=== PATIENT | female | born 1995 | race Caucasian/White ===

== ENCOUNTER 2017-06-02 08:26 | Outpatient (CLI) | payer MEDICAID ==
--- NOTE | 2017-06-02 19:10 | XRAY Report ---
DATE OF SERVICE: 06/02/2017 SUPINE ABDOMEN: 06/02/2017 CLINICAL INDICATION: Chronic abdominal pain. Supine views of the abdomen demonstrate a normal bowel gas pattern. No small bowel dilatation is present. No abnormal calcifications are appreciated overlying either renal shadow. IMPRESSION: Normal abdomen. TD: 06/02/2017 20:08
--- NOTE | 2017-06-02 19:49 | Ultrasound Report ---
DATE OF SERVICE: 06/02/2017 COMPLETE ABDOMINAL ULTRASOUND: 06/02/2017 CLINICAL INDICATION: Chronic abdominal pain. TECHNIQUE: Real-time scanning was performed with communications representative static images obtained. Liver measures 12.3 cm. Hepatic echogenicity is normal. No intrahepatic biliary dilatation or focal parenchymal lesion is appreciated. The common bile duct measures 2 mm. The gallbladder is normal, as is the pancreas. The spleen measures 9.6 cm, and demonstrates normal echotexture. The kidneys are normal, with the right measuring 9.9 cm, and the left measuring 10.7 cm. The abdominal aorta is normal in caliber. The inferior vena cava is unremarkable. No free fluid is present. IMPRESSION: Normal abdominal ultrasound. TD: 06/02/2017 20:48
== END 2017-06-02 08:27 | disposition home or self-care (01) ==
LOC: DI 08:26
PROVIDERS: ATTEND Pediatrics
DX: R10.9 Unspecified abdominal pain (principal)
CPT/HCPCS: 74018; 76700

== ENCOUNTER 2017-09-24 16:17 | Emergency (ER) | payer MEDICAID ==
--- NOTE | 2017-09-24 17:22 | ED Physician Documentation ---
History of Present Illness - Stated complaint Stated Complaint: COUGH - Chief complaint Chief Complaint: General - History obtained from History obtained from: Patient, Family (mom) - History of Present Illness Timing: Other (Nonproductive cough for 3 weeks which is worsening, she also has chest pain with coughing deep breathing. No fevers but she feels tired. There is also runny nose and a sore throat. The sore throat was much worse at the outset 3 weeks ago, now very mild.) Review of Systems Constitutional: reports: Fatigue. denies: Fever, Chills Respiratory: reports: Cough. denies: Dyspnea GI: denies: Abdominal Pain : denies: Now [facility] PD PAST MEDICAL HISTORY - Past Surgical History Past Surgical History: No - Present Medications Home Medications: Ambulatory Orders Medication Instructions Recorded Confirmed Azithromycin [Zithromax] 250 mg PO DAILY #4 tablet 09/24/17 Beclomethasone 80 Mcg [Qvar 80] 1 puffs INH DAILY 09/24/17 09/24/17 Dexamethasone 4 mg PO BID #10 tablet 09/24/17 Fluticasone [Flonase] 1 appful IN BID 09/24/17 09/24/17 guaiFENesin/CODEINE [Robitussin AC] 5 - 10 ml PO Q6H PRN #120 ml 09/24/17 - Allergies Allergies/Adverse Reactions: Allergies Allergy/AdvReac Type Severity Reaction Status Date / Time montelukast [From Singulair] AdvReac Unknown Verified 09/24/17 16:28 prednisone AdvReac Unknown Verified 09/24/17 16:28 - Social History Does the pt smoke?: No Smoking Status: Never smoker Does the pt drink ETOH?: No Does the pt have substance abuse?: No - Immunizations Immunizations are current?: Yes PD ED PE NORMAL - Vitals Vital signs reviewed: Yes - General General: Alert and oriented X 3, No acute distress - HEENT HEENT: PERRL, Ears normal, Moist mucous membranes, Pharynx benign - Neck Neck: Supple, no meningeal sign, No bony TTP - Cardiac Cardiac: RRR, No murmur - Respiratory Respiratory: No respiratory distress, Clear bilaterally - Abdomen Abdomen: Non tender - Neuro Neuro: Alert and oriented X 3, Normal speech Results - Vitals Vitals: Vital Signs - 24 hr 09/24/17 16:24 Temperature 36.6 C Heart Rate 77 Respiratory 14 Rate Blood Pressure 135/81 H O2 Saturation 100 Oxygen O2 Source Room air - Rads (name of study) 2v chest Radiology: EMP read contemporaneously (Hazy left base opacity) Departure - Departure Disposition: 01 Home, Self Care Clinical Impression: Pneumonia Qualifiers: Pneumonia type: due to unspecified organism Laterality: left Lung location: lower lobe of lung Qualified Code(s): J18.1 - Lobar pneumonia, unspecified organism Condition: Good Record reviewed to determine appropriate education?: Yes Instructions: ED Pneumonia Adult Prescriptions: Azithromycin [Zithromax] 250 mg PO DAILY #4 tablet Dexamethasone 4 mg PO BID #10 tablet guaiFENesin/CODEINE [Robitussin AC] 5 - 10 ml PO Q6H PRN #120 ml PRN Reason: Cough Comments: Call your doctor to arrange a follow-up appointment, make the next available appointment. In the interim, return anytime if worse or if new symptoms develop. Your blood pressure was elevated today on check into the emergency department. This does not mean that you have hypertension, it is a common phenomenon to come to the emergency department and have elevated blood pressure. I recommend that you see your primary care physician within the week to have it rechecked when you are feeling better.
--- NOTE | 2017-09-24 17:37 | XRAY Preliminary Report ---
Exam: XR CHEST 2 VIEW X-RAY IMPRESSION: 1. Hazy density at the left lung base may be artifactual due to overlying breast parenchyma. No conco mitant abnormality on the lateral view. CT would be confirmatory. 2. No effusions or pneumothorax. [facility] SITE ID: [id number]
[2017-09-24] MEDS ORDERED: AZITHROMYCIN 250 MG TABLET PO STA (17:50)
--- NOTE | 2017-09-24 18:10 | XRAY Report ---
EXAM: CHEST RADIOGRAPHY EXAM DATE: 09/24/2017 05:29 PM. CLINICAL HISTORY: Cough, x 3 weeks. COMPARISON: 07/01/2014. TECHNIQUE: 2 views. FINDINGS: Lungs/Pleura: Subtle opacity at the lateral left lung base may represent overlying breast tissue give n the absence of significant abnormality on the lateral view. The right lung is clear. No pneumothora x or effusion. Mediastinum: Heart and mediastinal contours are unremarkable. Other: None. IMPRESSION: 1. Hazy density at the left lung base may be artifactual due to overlying breast parenchyma. No conco mitant abnormality on the lateral view. CT would be confirmatory. 2. No effusions or pneumothorax. [facility] Referring Provider Line: [phone] SITE ID: [id number]
[2017-09-24 18:15] VITALS: BP 127/78
== END 2017-09-24 18:13 | disposition home or self-care (01) ==
LOC: ED 16:17
DX: J18.1 Lobar pneumonia, unspecified organism (principal); R03.0 Elevated blood-pressure reading, without diagnosis of hypertension
CPT/HCPCS: 71046; 99283; A9270

== ENCOUNTER 2017-10-13 14:34 | Outpatient (CLI) | payer MEDICAID ==
--- NOTE | 2017-10-14 11:30 | XRAY Report ---
CHEST 2 VIEW X-RAY: 10/13/2017 HISTORY: Chronic cough. COMPARISON: 09/24/2017 FINDINGS: The lungs are clear. There is no pleural fluid or pneumothorax. The heart size is normal. Bony structures are unremarkable. IMPRESSION: NORMAL TWO VIEW CHEST X-RAY. TD: 10/13/2017 16:05
== END 2017-10-13 14:35 | disposition home or self-care (01) ==
LOC: DI 14:34
PROVIDERS: ATTEND Pediatrics
DX: R05 Cough (principal)
CPT/HCPCS: 71046

== ENCOUNTER 2018-06-04 17:23 | Emergency (ER) | payer MEDICAID ==
[2018-06-04] MEDS ORDERED: CYCLOBENZAPRINE 10 MG TABLET PO STA (17:40)
--- NOTE | 2018-06-04 17:42 | ED Physician Documentation ---
PD HPI PED ILLNESS - Stated complaint Stated Complaint: COUGH/STIFF NECK - Chief complaint Chief Complaint: Heent - History obtained from History obtained from: Patient, Family - History of Present Illness Timing - onset: Today (She has had a cough for a couple of days but today she has neck stiffness. She points to the right sternocleidomastoid as the site of stiffness it is much more painful with rotation than it is flexion. Mom had a concern about meningitis. There is no fever.) Review of Systems Constitutional: denies: Fever, Chills Nose: denies: Rhinorrhea / runny nose, Congestion Respiratory: reports: Dyspnea, Cough GI: denies: Abdominal Pain Neurologic: denies: Headache PD PAST MEDICAL HISTORY - Past Medical History Past Medical History: No Cardiovascular: None Respiratory: Asthma Neuro: None Endocrine/Autoimmune: None GI: None SUPERVISOR ASSEMBLING: None : None HEENT: None Psych: None Musculoskeletal: None Derm: None - Past Surgical History Past Surgical History: No - Present Medications Home Medications: Ambulatory Orders Medication Instructions Recorded Confirmed Azithromycin [Zithromax] 250 mg PO DAILY #4 tablet 09/24/17 Beclomethasone 80 Mcg [Qvar 80] 1 puffs INH DAILY 09/24/17 09/24/17 Dexamethasone 4 mg PO BID #10 tablet 09/24/17 Fluticasone [Flonase] 1 appful IN BID 09/24/17 09/24/17 guaiFENesin/CODEINE [Robitussin AC] 5 - 10 ml PO Q6H PRN #120 ml 09/24/17 Cyclobenzaprine [Flexeril] 10 mg PO TID PRN #20 tablet 06/04/18 - Allergies Allergies/Adverse Reactions: Allergies Allergy/AdvReac Type Severity Reaction Status Date / Time montelukast [From Singulair] AdvReac Unknown Verified 09/24/17 16:28 prednisone AdvReac Unknown Verified 09/24/17 16:28 - Social History Does the pt smoke?: No Smoking Status: Never smoker Does the pt drink ETOH?: No Does the pt have substance abuse?: No - Immunizations Immunizations are current?: Yes - POLST Patient has POLST: No PD ED PE NORMAL - Vitals Vital signs reviewed: Yes - General General: Alert and oriented X 3, No acute distress - HEENT HEENT: PERRL, EOMI, Pharynx benign - Neck Neck: Supple, no meningeal sign, No bony TTP, Other (She is tender over the right sternocleidomastoid and winces with leftward rotation but has no meningismus.) - Respiratory Respiratory: No respiratory distress, Clear bilaterally - Abdomen Abdomen: Non tender - Neuro Neuro: Alert and oriented X 3, Normal speech Results - Vitals Vitals: Vital Signs - 24 hr 06/04/18 17:29 Temperature 36.4 C L Heart Rate 92 Respiratory 16 Rate Blood Pressure 143/84 H O2 Saturation 99 Oxygen O2 Source Room air Departure - Departure Disposition: Home, Self Care Clinical Impression: Viral URI with cough, Neck muscle spasm Condition: Good Record reviewed to determine appropriate education?: Yes Instructions: ED Viral Syndrome Prescriptions: Cyclobenzaprine [Flexeril] 10 mg PO TID PRN #20 tablet PRN Reason: Spasms Comments: Call your doctor to arrange a follow-up appointment, make the next available appointment. In the interim, return anytime if worse or if new symptoms develop. Your blood pressure was elevated today on check into the emergency department. This does not mean that you have hypertension, it is a common phenomenon to come to the emergency department and have elevated blood pressure. I recommend that you see your primary care physician within the week to have it rechecked when you are feeling better.
[2018-06-04 17:48] VITALS: BP 130/72
== END 2018-06-04 17:49 | disposition home or self-care (01) ==
LOC: ED 17:23
DX: J06.9 Acute upper respiratory infection, unspecified (principal); B97.89 Other viral agents as the cause of diseases classified elsewhere; M62.838 Other muscle spasm; R03.0 Elevated blood-pressure reading, without diagnosis of hypertension
CPT/HCPCS: 99283; A9270

== ENCOUNTER 2018-07-12 13:15 | Outpatient (CLI) | payer MEDICAID ==
[2018-07-12 18:42] LABS: BASOPHILS # (AUTO) 0.1 10^3/uL (0.0-0.1); EOSINOPHILS # (AUTO) 0.1 10^3/uL (0.0-0.7); HGB - HEMOGLOBIN 13.5 g/dL (12.0-16.0); LYMPHOCYTES # (AUTO) 1.8 10^3/uL (1.5-3.5); LYMPHOCYTES % (AUTO) 31.3 %; MEAN CORPUSCULAR HEMOGLOBIN 28.3 pg (27.0-31.0); MEAN CORPUSCULAR VOLUME 85.9 fL (81.0-99.0); MEAN PLATELET VOLUME 9.6 fL (7.9-10.8); MONOCYTES # (AUTO) 0.5 10^3/uL (0.0-1.0); MONOCYTES % (AUTO) 8.6 %; NEUTROPHILS # (AUTO) 3.3 10^3/uL (1.5-6.6); NEUTROPHILS % (AUTO) 58.1 %; PLT - PLATELET COUNT 287 10^3/uL (130-450); RED BLOOD COUNT 4.77 10^6/uL (4.20-5.40); RED CELL DISTRIBUTION WIDTH 13.6 % (12.0-15.0); WHITE BLOOD COUNT 5.7 x10^3/uL (4.8-10.8)
[2018-07-12 19:43] LABS: ALBUMIN 4.4 g/dL (3.2-5.5); ALBUMIN/GLOBULIN RATIO 1.2 (1.0-2.2); BILIRUBIN,TOTAL 0.6 mg/dL (0.2-1.0); CALCIUM 9.4 mg/dL (8.5-10.3); CREATININE 0.6 mg/dL (0.4-1.0); TOTAL PROTEIN 8.2 g/dL (6.7-8.2)
[2018-07-12 19:53] LABS: THYROID STIMULATING HORMONE 1.57 uIU/mL (0.34-5.60)
[2018-07-12 19:55] LABS: FREE T4 (FREE THYROXINE) 0.9 ng/dL (0.58-1.64)
[2018-07-12 20:04] LABS: FOLATE 17.39 ng/mL (5.90 - >24.8)
== END 2018-07-12 23:59 | disposition home or self-care (01) ==
LOC: LAB.N 13:15
PROVIDERS: ATTEND Nurse Practitioner
DX: R53.83 Other fatigue (principal); E55.9 Vitamin D deficiency, unspecified
CPT/HCPCS: 36415; 80053; 82306; 82607; 82746; 84439; 84443; 84481; 85025; 86376; 86800

== ENCOUNTER 2018-08-08 11:08 | Outpatient (CLI) | payer MEDICAID ==
[2018-08-08 18:49] LABS: BASOPHILS % (AUTO) 0.5 %; EOSINOPHILS % (AUTO) 0.4 %; HGB - HEMOGLOBIN 13.7 g/dL (12.0-16.0); LYMPHOCYTES # (AUTO) 0.7 10^3/uL (1.5-3.5); LYMPHOCYTES % (AUTO) 17.9 %; MEAN CORPUSCULAR HEMOGLOBIN 28.3 pg (27.0-31.0); MEAN CORPUSCULAR HGB CONC 32.7 g/dL (32.0-36.0); MEAN CORPUSCULAR VOLUME 86.6 fL (81.0-99.0); MEAN PLATELET VOLUME 9.2 fL (7.9-10.8); MONOCYTES # (AUTO) 0.5 10^3/uL (0.0-1.0); NEUTROPHILS # (AUTO) 2.6 10^3/uL (1.5-6.6); NEUTROPHILS % (AUTO) 68.2 %; PLT - PLATELET COUNT 229 10^3/uL (130-450); RED BLOOD COUNT 4.85 10^6/uL (4.20-5.40); RED CELL DISTRIBUTION WIDTH 14.2 % (12.0-15.0); WHITE BLOOD COUNT 3.8 x10^3/uL (4.8-10.8)
[2018-08-08 19:21] LABS: % IRON SATURATION 4 % (20-50); IRON 22 ug/dL (28-170); TOTAL IRON BINDING CAPACITY 497 ug/dL (250-450); TRANSFERRIN 355 mg/dL (192-382)
[2018-08-08 19:24] LABS: FERRITIN 14.5 ng/mL (11.0-306.8)
[2018-08-08 19:28] LABS: FOLATE 10.57 ng/mL (5.90 - >24.8)
== END 2018-08-08 23:59 | disposition home or self-care (01) ==
LOC: LAB.N 11:08
PROVIDERS: ATTEND Nurse Practitioner
DX: N92.0 Excessive and frequent menstruation with regular cycle (principal)
CPT/HCPCS: 36415; 82607; 82728; 82746; 83540; 84466; 85025

== ENCOUNTER 2018-08-14 21:20 | Outpatient (CLI) | payer MEDICAID ==
--- NOTE | 2018-08-15 10:13 | Ultrasound Report ---
Reason: MENORRHAGIA Procedure Date: 08/14/2018 Accession Number: [id number] / [id number] Procedure: US - Pelvic w/Transvaginal CPT Code: FULL RESULT: EXAM: PELVIC ULTRASOUND EXAM DATE: 08/14/2018 10:45 PM. CLINICAL HISTORY: MENORRHAGIA. COMPARISON: None. TECHNIQUE: Realtime transabdominal pelvic scan performed to identify the uterus and adnexa and as an overview of other pelvic structures, followed by transvaginal scan to provide greater detail of the uterus and adnexa, with static image documentation. FINDINGS: Uterus: 6.2 x 4.4 x 3.7 cm, volume 52.7 cc. Retroverted position. Normal overall size and echotexture. Masses: None. Endometrium: 6 mm. Normal. Cervix: Unremarkable. Right Ovary: 3.7 x 2.7 x 2.2 cm, volume 11.4 cc. Normal echotexture and blood flow. Multiple follicles are noted with the largest cystic structure measuring up to 2.1 cm, likely within physiologic limits for dominant follicle. Left Ovary: 4.2 x 2.2 x 2.4 cm, volume 11.5 cc. Normal echotexture and blood flow. Multiple follicles are noted, the largest of which measures 1 cm. Free Fluid: A small amount of free fluid in the cul-de-sac may be within physiologic limits. Other: None. IMPRESSION: Dominant follicles and a small amount of fluid within the pelvic cul-de-sac. [facility]
== END 2018-08-14 21:21 | disposition home or self-care (01) ==
LOC: DI 21:20
PROVIDERS: ATTEND Nurse Practitioner
DX: N92.0 Excessive and frequent menstruation with regular cycle (principal)
CPT/HCPCS: 76830; 76856

== ENCOUNTER 2019-02-09 11:34 | Emergency (ER) | payer MEDICAID, OTHER ==
[2019-02-09 12:02] VITALS: BP 137/97
--- NOTE | 2019-02-09 12:13 | ED Physician Documentation ---
PD HPI HEENT - Stated complaint Stated Complaint: COLD SX - Chief complaint Chief Complaint: Resp - History obtained from History obtained from: Patient - History of Present Illness Timing - onset: Other (23-year-old woman with history of asthma presents with a 9-day biphasic illness. It started with cough and runny nose. She was getting better in about 2 days ago relapsed with more severe symptoms including fever to 101 today. She is productive cough and bilateral retro-orbital pain. No possibility of .) Review of Systems Ten Systems: 10 systems reviewed and negative Constitutional: reports: Fever, Chills, Myalgias, Fatigue Nose: reports: Rhinorrhea / runny nose, Congestion, Sinus pressure / pain Throat: denies: Sore throat Respiratory: reports: Cough. denies: Dyspnea GI: denies: Vomiting, Diarrhea PD PAST MEDICAL HISTORY - Past Medical History Cardiovascular: None Respiratory: Asthma Neuro: None Endocrine/Autoimmune: None GI: None INSTRUMENT MAKER: None : None HEENT: None Psych: None Musculoskeletal: None Derm: None - Past Surgical History Past Surgical History: No - Present Medications Home Medications: Ambulatory Orders Medication Instructions Recorded Confirmed Fluticasone [Flonase] 1 appful IN BID 09/24/17 09/24/17 Amox/Clav 875/125 [Augmentin] 1 each PO Q12H #20 tablet 02/09/19 Benzonatate [Tessalon Perle] 100 - 200 mg PO TID PRN #30 capsule 02/09/19 Controll Pills 1 tab DAILY 02/09/19 Levalbuterol [Xopenex] 02/09/19 dexAMETHasone [Decadron] 4 mg PO BIDWM #10 tablet 02/09/19 guaiFENesin/CODEINE [Robitussin AC] 5 - 10 ml PO Q6H PRN #120 ml 02/09/19 - Allergies Allergies/Adverse Reactions: Allergies Allergy/AdvReac Type Severity Reaction Status Date / Time montelukast [From Singulair] AdvReac Unknown Verified 02/09/19 12:03 prednisone AdvReac Unknown Verified 02/09/19 12:03 - Social History Does the pt smoke?: No Smoking Status: Never smoker Does the pt drink ETOH?: No Does the pt have substance abuse?: No - Immunizations Immunizations are current?: Yes - POLST Patient has POLST: No PD ED PE NORMAL - Vitals Vital signs reviewed: Yes - General General: Alert and oriented X 3, No acute distress - HEENT HEENT: Other (Mild right macular sinus tenderness, TMs and oropharynx normal) - Neck Neck: Supple, no meningeal sign, No bony TTP - Cardiac Cardiac: RRR, No murmur - Respiratory Respiratory: Other (Nonlabored, bibasilar rhonchi, no wheezing, good air motion) - Abdomen Abdomen: Non tender - Derm Derm: No rash - Neuro Neuro: Alert and oriented X 3, Normal speech Results - Vitals Vitals: Vital Signs - 24 hr 02/09/19 11:50 Temperature 36.9 C Heart Rate 86 Respiratory 18 Rate Blood Pressure 137/97 H O2 Saturation 100 Oxygen O2 Source Room air PD MEDICAL DECISION MAKING - ED course ED course: 23-year-old woman with sinusitis, IDSA guidelines would predict that this would be a good patient for trial of antibiotic therapy given the long time course and new fever, and biphasic illness. Departure - Departure Disposition: 01 Home, Self Care Clinical Impression: Sinusitis Qualifiers: Sinusitis location: maxillary Chronicity: acute Recurrence: not specified as recurrent Qualified Code(s): J01.00 - Acute maxillary sinusitis, unspecified Condition: Good Record reviewed to determine appropriate education?: Yes Instructions: ED Sinusitis Abx Tx Prescriptions: Amox/Clav 875/125 [Augmentin] 1 each PO Q12H #20 tablet Benzonatate [Tessalon Perle] 100 - 200 mg PO TID PRN #30 capsule PRN Reason: Cough dexAMETHasone [Decadron] 4 mg PO BIDWM #10 tablet guaiFENesin/CODEINE [Robitussin AC] 5 - 10 ml PO Q6H PRN #120 ml PRN Reason: Cough Comments: Recheck with your doctor early next week if not better, return for new or worsening symptoms. Your blood pressure was elevated today on check into the emergency department. This does not mean that you have hypertension, it is a common phenomenon to come to the emergency department and have elevated blood pressure. I recommend that you see your primary care physician within the week to have it rechecked when you are feeling better.
== END 2019-02-09 12:42 | disposition home or self-care (01) ==
LOC: ED 11:34
DX: J01.00 Acute maxillary sinusitis, unspecified (principal); R03.0 Elevated blood-pressure reading, without diagnosis of hypertension
CPT/HCPCS: 99283

== ENCOUNTER 2019-06-20 17:40 | Emergency (ER) | payer OTHER ==
[2019-06-20 18:08] LABS: BASOPHILS # (AUTO) 0.1 10^3/uL (0.0-0.1); BASOPHILS % (AUTO) 0.8 %; EOSINOPHILS % (AUTO) 0.3 %; HGB - HEMOGLOBIN 13.8 g/dL (12.0-16.0); LYMPHOCYTES # (AUTO) 2.1 10^3/uL (1.5-3.5); MEAN CORPUSCULAR HEMOGLOBIN 29.2 pg (27.0-31.0); MEAN CORPUSCULAR HGB CONC 33.9 g/dL (32.0-36.0); MEAN PLATELET VOLUME 10.1 fL (7.9-10.8); MONOCYTES # (AUTO) 0.7 10^3/uL (0.0-1.0); MONOCYTES % (AUTO) 10.6 %; NEUTROPHILS # (AUTO) 3.3 10^3/uL (1.5-6.6); PLT - PLATELET COUNT 291 10^3/uL (130-450); RED BLOOD COUNT 4.73 10^6/uL (4.20-5.40); RED CELL DISTRIBUTION WIDTH 12.7 % (12.0-15.0); WHITE BLOOD COUNT 6.2 x10^3/uL (4.8-10.8)
[2019-06-20 18:23] LABS: ALBUMIN 4.7 g/dL (3.2-5.5); ALBUMIN/GLOBULIN RATIO 1.3 (1.0-2.2); BILIRUBIN,TOTAL 0.5 mg/dL (0.2-1.0); CALCIUM 9.7 mg/dL (8.5-10.3); CREATININE 0.6 mg/dL (0.4-1.0); TOTAL PROTEIN 8.4 g/dL (6.7-8.2)
--- NOTE | 2019-06-20 19:17 | ED Physician Documentation ---
History of Present Illness - Stated complaint Stated Complaint: AB PX/NAUSEA - Chief complaint Chief Complaint: Abd Pain - History obtained from History obtained from: Patient (the patient is a very pleasant 23 y/o f w a cc of nausea after eating and some mild abd cramping. her LMP was 1 month ago. she denies severe abd pain, dark urine, starla colored stools, diarrhea or constipation. denies flank pain.) Review of Systems Ten Systems: 10 systems reviewed and negative Constitutional: reports: Reviewed and negative Eyes: reports: Reviewed and negative Ears: reports: Reviewed and negative Nose: reports: Reviewed and negative Throat: reports: Reviewed and negative Cardiac: reports: Reviewed and negative Respiratory: reports: Reviewed and negative GI: reports: Nausea : reports: Reviewed and negative Skin: reports: Reviewed and negative Musculoskeletal: reports: Reviewed and negative Neurologic: reports: Reviewed and negative Psychiatric: reports: Reviewed and negative Endocrine: reports: Reviewed and negative Immunocompromised: reports: Reviewed and negative PD PAST MEDICAL HISTORY - Past Medical History Cardiovascular: None Respiratory: Asthma Neuro: None Endocrine/Autoimmune: None GI: None DIRECTOR REVENUE: None : None HEENT: None Psych: None Musculoskeletal: None Derm: None - Past Surgical History Past Surgical History: No - Present Medications Home Medications: Ambulatory Orders Medication Instructions Recorded Confirmed Fluticasone [Flonase] 1 appful IN BID 09/24/17 09/24/17 Amox/Clav 875/125 [Augmentin] 1 each PO Q12H #20 tablet 02/09/19 Benzonatate [Tessalon Perle] 100 - 200 mg PO TID PRN #30 capsule 02/09/19 Controll Pills 1 tab DAILY 02/09/19 Levalbuterol [Xopenex] 02/09/19 dexAMETHasone [Decadron] 4 mg PO BIDWM #10 tablet 02/09/19 guaiFENesin/CODEINE [Robitussin AC] 5 - 10 ml PO Q6H PRN #120 ml 02/09/19 Ondansetron Odt [Zofran] 4 mg TL Q6H PRN #10 tablet 06/20/19 - Allergies Allergies/Adverse Reactions: Allergies Allergy/AdvReac Type Severity Reaction Status Date / Time montelukast [From Singulair] AdvReac Unknown Verified 06/20/19 17:50 prednisone AdvReac Unknown Verified 06/20/19 17:50 - Social History Does the pt smoke?: No Smoking Status: Never smoker Does the pt drink ETOH?: No Does the pt have substance abuse?: No - Immunizations Immunizations are current?: Yes - POLST Patient has POLST: No PD ED PE NORMAL - Vitals Vital signs reviewed: Yes - General General: Alert and oriented X 3, No acute distress - HEENT HEENT: Atraumatic, PERRL, EOMI, Moist mucous membranes, Pharynx benign - Neck Neck: Supple, no meningeal sign - Cardiac Cardiac: RRR, No murmur - Respiratory Respiratory: No respiratory distress, Clear bilaterally - Abdomen Abdomen: Normal bowel sounds, Soft, Non tender, Non distended, No organomegaly - Derm Derm: Warm and dry - Extremities Extremities: No deformity - Neuro Neuro: Alert and oriented X 3, claims adjuster 2-12 intact, No motor deficit, No sensory deficit, Normal speech - Psych Psych: Normal mood, Normal affect Results - Vitals Vitals: Vital Signs - 24 hr 06/20/19 06/20/19 17:42 19:18 Temperature 36.5 C Heart Rate 98 81 Respiratory 16 18 Rate Blood Pressure 155/85 H 138/99 H O2 Saturation 100 100 Oxygen O2 Source Room air - Labs Labs: Laboratory Tests 06/20/19 06/20/19 06/20/19 18:01 18:01 18:45 WBC 6.2 RBC 4.73 Hgb 13.8 Hct 40.7 MCV 86.0 MCH 29.2 MCHC 33.9 RDW 12.7 Plt Count 291 MPV 10.1 Neut # (Auto) 3.3 Lymph # (Auto) 2.1 [place] # (Auto) 0.7 Eos # (Auto) 0.0 Baso # (Auto) 0.1 Absolute Nucleated RBC 0.00 Nucleated RBC % 0.0 Sodium 138 Potassium 3.4 L Chloride 102 Carbon Dioxide 27 Anion Gap 9.0 BUN 7 Creatinine 0.6 Estimated GFR (MDRD) 126 Glucose 164 H Calcium 9.7 Total Bilirubin 0.5 AST 26 ALT 36 Alkaline Phosphatase 91 Total Protein 8.4 H Albumin 4.7 Globulin 3.7 Albumin/Globulin Ratio 1.3 Lipase 31 Urine Color YELLOW Urine Clarity CLEAR Urine pH 6.0 Ur Specific [place] 1.010 Urine Protein NEGATIVE Urine Glucose (UA) NEGATIVE Urine Ketones 15 H Urine Occult Blood NEGATIVE Urine Nitrite NEGATIVE Urine Bilirubin NEGATIVE Urine Urobilinogen 0.2 (NORMAL) Ur Leukocyte Esterase NEGATIVE Ur Microscopic Review NOT INDICATED Urine Culture Comments NOT INDICATED Urine HCG, Qual 06/20/19 18:45 WBC RBC Hgb Hct MCV MCH MCHC RDW Plt Count MPV Neut # (Auto) Lymph # (Auto) [place] # (Auto) Eos # (Auto) Baso # (Auto) Absolute Nucleated RBC Nucleated RBC % Sodium Potassium Chloride Carbon Dioxide Anion Gap BUN Creatinine Estimated GFR (MDRD) Glucose Calcium Total Bilirubin AST ALT Alkaline Phosphatase Total Protein Albumin Globulin Albumin/Globulin Ratio Lipase Urine Color Urine Clarity Urine pH Ur Specific [place] 1.010 Urine Protein Urine Glucose (UA) Urine Ketones Urine Occult Blood Urine Nitrite Urine Bilirubin Urine Urobilinogen Ur Leukocyte Esterase Ur Microscopic Review Urine Culture Comments Urine HCG, Qual NEGATIVE PD MEDICAL DECISION MAKING - ED course Complexity details: re-evaluated patient (well appearing, updated on results, f/u w pcp.), d/w patient, d/w family, other (abd exam is benign, screening labs sent.) Departure - Departure Disposition: 01 Home, Self Care Clinical Impression: Nausea & vomiting Qualifiers: Vomiting type: unspecified Vomiting Intractability: non-intractable Qualified Code(s): R11.2 - Nausea with vomiting, unspecified Condition: Good Instructions: ED Nausea Vomiting Follow-Up: YOUR,DOCTOR [Other] - Tomorrow Prescriptions: Ondansetron Odt [Zofran] 4 mg TL Q6H PRN #10 tablet PRN Reason: Nausea / Vomiting
[2019-06-20 19:19] VITALS: BP 138/99
[2019-06-20 19:31] LABS: BILIRUBIN,URINE NEGATIVE (NEGATIVE); GLUCOSE, URINE (UA) NEGATIVE (NEGATIVE); KETONES,URINE (UA) 15 mg/dL (NEGATIVE); LEUKOCYTE ESTERASE, URINE NEGATIVE (NEGATIVE); NITRITE,URINE NEGATIVE (NEGATIVE); OCCULT BLOOD,URINE NEGATIVE (NEGATIVE); PROTEIN,URINE NEGATIVE (NEGATIVE); UROBILINOGEN,URINE 0.2 (NORMAL) E.U./dL (NORMAL)
[2019-06-20 19:33] LABS: CLARITY,URINE CLEAR (CLEAR)
[2019-06-20] MEDS ORDERED: ONDANSETRON ODT 4 MG TABLET TL STA (20:45)
[2019-06-20 20:56] LABS: HCG UR QUAL NEGATIVE
== END 2019-06-20 21:22 | disposition home or self-care (01) ==
LOC: ED 17:40
DX: R11.2 Nausea with vomiting, unspecified (principal); R10.9 Unspecified abdominal pain
CPT/HCPCS: 36415; 80053; 81003; 81025; 83690; 85025; 99283; Q0162; 81001; 87086